=== PATIENT | female | born 1995 | race Caucasian/White ===

== ENCOUNTER 2019-04-07 19:46 | Emergency (ER) | payer BC ==
[~2019-04-07] VITALS: Ht 162.6 cm; Wt 81.6 kg
--- NOTE | 2019-04-07 20:03 | NUR ---
HEADACHE X 2 DAYS NO TRAUMA OR INJURY. Patient in bed, breathing even and unlabored, no sob noted. Placed on the monitor. Waiting for md cancino.
[2019-04-07] MEDS ORDERED: DIAZEPAM 5 MG TABLET PO ONE (20:30)
[2019-04-07] MEDS ORDERED: KETOROLAC TROMETHAMINE INJ 60 MG/2 ML VIAL IM ONE (20:30)
[2019-04-07] MEDS ORDERED: DIAZEPAM 5 MG TABLET ONE (20:35)
[2019-04-07 20:56] LABS: THYROID STIMULATING HORMONE 3.369 uIU/mL (0.358-3.74)
[2019-04-07] MEDS ORDERED: KETOROLAC TROMETHAMINE INJ 30 MG/ML VIAL ONE (21:12)
--- NOTE | 2019-04-07 22:27 | NUR ---
Patient refused [place] at this time, patient discharged to home in stable condition. Written and verbal after care instructions given. Patient verbalizes understanding of instruction. Addendum: 04/07/19 at 2229 by PATRICIAANCES Addendum: Rx provided, and explained instructions.
[2019-04-07 22:29] VITALS: BP 149/111
[2019-04-07] MEDS ORDERED: HYDROCODONE/APAP 5/325MG 1 EACH TABLET PO ONE (22:30)
== END 2019-04-07 22:30 | disposition home or self-care (01) ==
LOC: ER 19:46
DX: G44.209 Tension-type headache, unspecified, not intractable (principal); M54.2 Cervicalgia; E03.9 Hypothyroidism, unspecified; Z88.1 Allergy status to other antibiotic agents
CPT/HCPCS: 36415; 82962; 84443; 84702; 96372; 99283; J1885

== ENCOUNTER 2023-06-20 18:10 | Emergency (ER) | payer BC ==
[~2023-06-20] VITALS: Ht 165.1 cm; Wt 99.8 kg
--- NOTE | 2023-06-20 18:22 | NUR ---
PATIENT CAME TO EMERGENCY DEPARTMENT WITH COMPLAINTS OF CHEST PAIN SINCE 1629 .ALERT AND ORIENTED*4.ON ROOM AIR.ATTACHED TO CD REACTOR OPERATOR HEAD AND PULSE OXYMETER.CHANGED TO HOSPITAL GOWN.AWAITING MD FOR EVALUATION.
--- NOTE | 2023-06-20 18:23 | NUR ---
DR STEVENSON AT BED SIDE FOR EVAL
--- NOTE | 2023-06-20 18:45 | NUR ---
IV INSERTED ON RT FORE ARM NO 20 G ,BLOOD SAMPLE COLLECTED AND SEND TO LAB.
[2023-06-20 18:52] LABS: BASOPHILS # (AUTO) 0.1 K/uL (0.0-0.2); BASOPHILS % (AUTO) 0.6 % (0.0-2.0); HEMATOCRIT 42 % (33-45); HEMOGLOBIN 13.9 g/dL (11.5-14.8); LYMPHOCYTES # (AUTO) 3.3 K/uL (0.8-4.8); LYMPHOCYTES % (AUTO) 31.5 % (20.0-44.0); MEAN CORPUSCULAR HGB CONC 33 g/dl (31.0-36.0); MEAN CORPUSCULAR VOLUME 77 fL (82-100); MONOCYTES # (AUTO) 0.9 K/uL (0.1-1.30); MONOCYTES % (AUTO) 8.6 % (2.0-12.0); NEUTROPHILS % (AUTO) 58.3 % (43.0-81.0); PLATELET COUNT (AUTO) 362 K/uL (150-450); RED BLOOD CELL COUNT(AUTO) 5.45 MIL/uL (4.0-5.2); WHITE BLOOD COUNT (AUTO) 10.3 K/uL (4.3-11.0)
--- NOTE | 2023-06-20 18:59 | NUR ---
URINE COLLECTED AND SEND TO LAB.
[2023-06-20 19:11] LABS: ALANINE AMINOTRANSFERASE 34 U/L (12-78); ALBUMIN 3.8 g/dL (3.4-5.0); ALKALINE PHOSPHATASE 85 U/L (46-116); ASPARTATE AMINOTRANSFERASE 18 U/L (15-37); BILIRUBIN,DIRECT 0.1 mg/dL (0.0-0.2); BILIRUBIN,TOTAL 0.3 mg/dL (0.2-1.0); CALCIUM, SERUM 9.8 mg/dL (8.5-10.1); CARBON DIOXIDE 24 mmol/L (21-32); CHLORIDE 103 mmol/L (98-107); CREATININE 0.7 mg/dL (0.6-1.3); GLUCOSE 110 mg/dL (74-106); POTASSIUM 3.8 mmol/L (3.5-5.1); SODIUM SERUM 139 mmol/L (136-145); UREA NITROGEN, BLOOD 11 mg/dL (7-18)
--- NOTE | 2023-06-20 19:13 | NUR ---
ECG AT BED SIDE
--- NOTE | 2023-06-20 19:36 | NUR ---
REPORT GIVEN TO AJ FOR JESSICA
[2023-06-20] MEDS ORDERED: LEVOFLOXACIN 750 MG /D5W 150ML 150 ML IV ONE (20:19)
--- NOTE | 2023-06-20 20:20 | NUR ---
GROCERY SUPERVISOR AT PT'S BEDSIDE
[2023-06-20] MEDS ORDERED: LEVOFLOXACIN 750 MG /D5W 150ML PIGGYBACK IV ONE (20:30)
[2023-06-20] MEDS ORDERED: LEVO750T46 PO (21:18)
--- NOTE | 2023-06-20 21:42 | NUR ---
Patient discharged to home in stable condition. Written and verbal after care instructions given. Patient verbalizes understanding of instruction. IV removed. Catheter intact and site benign. Pressure and 4x4 applied to site. No bleeding noted.
[2023-06-20 21:44] VITALS: BP 136/98; TEMP 98; O2SAT 100
== END 2023-06-20 21:44 | disposition home or self-care (01) ==
LOC: ER 18:28
DX: R07.89 Other chest pain (principal); E03.9 Hypothyroidism, unspecified; Z88.1 Allergy status to other antibiotic agents
CPT/HCPCS: 99285; 96374; 71045; 93005; 85025; 80048; 80076; 85378; 84703; 36415; 84484; J1956